=== PATIENT | male | born 1980 | race Two or more races ===

== ENCOUNTER → 2022-04-06 15:27 | Outpatient (BNVA) | payer SELFPAY | PROVIDERS: Visit Provider Internal Medicine Rheumatology | DX: L40.50 Arthropathic psoriasis, unspecified (principal); J45.909 Unspecified asthma, uncomplicated; B35.3 Tinea pedis; Z79.60 Long term (current) use of unspecified immunomodulators and immunosuppressants | CPT/HCPCS: 99212 ==

== ENCOUNTER 2022-12-07 15:12 | Outpatient (AMB) | payer OTHER, SELFPAY ==
--- NOTE | 2022-12-07 15:14 | A.OFFVIS_ITS ---
Intake Vital Signs 3 12/07/22 15:22 Height 6 ft 1 in Weight 166 lb 14.239 oz BMI 22.0 BP 98/60 Blood Pressure Location Lt brachial Position Sitting Pulse 74 Pulse Source Pulse Oximeter Temp 98 F Temp Source Skin Pulse Oximetry (%) 98 Oxygen Delivery Method Room Air Intake Visit Reasons: PSA Intake Note: Here for PsA follow up. Policy Service Coordinator Required: No Accompanied by: Self / Same As Patient Allergies No Known Allergies Allergy (Verified 12/07/22 15:25) HPI HPI Comments 2 History of Present Illness0 Details The patient returns for evaluation of his psoriasis and psoriatic arthritis. He remains on Humira 40 mg prescribed as every 2 week intervals. He does admit he has trouble sometimes getting back to his home to give himself the Humira injection on time. There is at present some outbreak of psoriasis around the scalp. He does use some triamcinolone 0.5% cream on the skin lesions occasionally. The joints however have been comfortable. He remains with deformity in the right hand and the feet. His asthma seems controlled currently with the occasional use of albuterol inhaler. He has heard about Skyrizi and wonders if it would be appropriate for him. The longer interval between doses would be more acceptable to his lifestyle. He continues to travel around town with his bicycle. 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 [facility] Medical History (Updated 04/06/22 @ 16:21 by Silas Contreras MD) Mild intermittent asthma in adult without complication Psoriatic arthritis Surgical History No history of previous surgery Family History Father No problems noted. Mother No problems noted. Social History (Updated 12/07/22 @ 15:26 by MILAN Benz) Household Members: Family Alcohol intake: former Patient Tobacco Use Status: Never used Tobacco Current occupational status: employed Review of Systems Const Details: Negative for appetite change, weight change, fever, chills, malaise and fatigue Eyes Details: Negative for vision change, dry eyes,headaches and dizziness Resp Details: Negative for SOB, cough and wheezing GI Details: Negative indigestion/heartburn, nausea, abdominal pain, bowel changes, diarrhea, constipation and bloody stool. Psych Details: Negative for anxiety, depression and stress Javier/Lymph Details: Negative for excessive bruising or bleeding. Physical Exam Vital Signs: Last Vital Signs Temp 98 F 12/07/22 15:22 Pulse 74 12/07/22 15:22 BP 98/60 12/07/22 15:22 Pulse Ox 98 12/07/22 15:22 Oxygen Delivery Method Room Air 12/07/22 15:22 BMI result Body Mass Index 22.0 APPEARANCE: Patient in no acute distress EYES no redness, pupils equal and reactive to light, eyelids normal EXTREMITIES: No edema, no calf tenderness, normal peripheral pulses. SKIN: Some nail changes in the toes. There is some redness and scaling in between the toes. Many of the toes have been fused in a parallel positions and I can not really see the skin in between. There is some redness particularly between the 1st and 2nd digit bilaterally. This looks more like tinea. No objective evidence of Raynaud's disease. There is some redness and scaling along the anterior scalp margin consistent with scalp psoriasis. JOINT EXAM:.?? Cervical Spine:.? Some limitation of full extension and lateral flexion. Rotation intact to about 50 degrees. No pain. No tenderness. Thoracic Spine:.? No scoliosis.? No tenderness on palpation. Lumbar Spine:.? Alignment normal.? There is some decreased flexion with a Rojelio's test about 3 cm. No pain with motion. No the tenderness. Chest Wall:.? No tenderness, swelling, increased warmth or erythema. Hands:.? Right: There is slight hyperextension at the MCP joints. They can be extended further but there is no flexion. There is similar fusion at the PIP joints at 90 degrees. None of these are tender today. The 2nd and 4th PIP also have fusion in full extension. Again no tenderness or swelling. He has trouble opposing the thumb against the other fingers but he can oppose the thumb to the palm of the hand. Photograph of the right hand: Left: Normal pain-free range of motion without tenderness, swelling, increased warmth or erythema. Able to make a full fist and has a good claim analyst strength. Wrists:.? Right: Minimal motion of any at the right wrist. There is some slight thickening and minimal tenderness. No redness or warmth. He has about 90 degrees of supination and pronation at the wrist. Left: Normal pain-free range of motion without tenderness, swelling, increased warmth or erythema. Elbows:. Normal pain-free range of motion without tenderness, swelling, increased warmth or erythema. Shoulders:.?? Full range of motion without pain. No tenderness, weakness, swelling, increased warmth or erythema. Hips:.? Full range of motion without pain. Hip bursa:.? No tenderness. Knees:.?? Normal pain-free range of motion without tenderness, swelling, increased warmth or erythema.? There is no effusion or crepitation Ankles:.? AP motion seems intact but there is limited inversion and eversion in both ankles. They are not tender or swollen. No Achilles tenderness. Feet:.? He has hallux valgus deformity bilaterally with splaying of the toes particularly between the 1st and 2nd digits bilaterally. This is a bit more prominent on the left. On the right that are calluses beneath the 3rd and 5th metatarsal but not underneath the 1st MTP. There is fusion at the 1st MTPs bilaterally. These are not tender today. There is the above-mentioned redness and scaling between the 1st and 2nd digits. All of the nails have some dystrophic changes but are not tender. Photograph of the feet: Tender points: No tenderness to digital palpation at the occiput, trapezius, second rib, lateral epicondyle, knees, greater trochanter and gluteal area bilaterally. Assessment & Plan Assessment & Plan (1) Long-term use of immunosuppressant medication: Code(s): Z79.60 - USP (current) use of unspecified immunomodulators and immunosuppressants (2) Asthma: Code(s): J45.909 - Unspecified asthma, uncomplicated (3) Psoriasis: Code(s): L40.9 - Psoriasis, unspecified (4) Psoriatic arthritis of multiple joints: Comment: Onset 2006. Initially on feet, ankles. Eventually elbow, hands wrists involved. Not much improvement with naproxen. No other treatment until 2013 - Methotrexate started August 2013, Humira added October 2013. Methotrexate stopped 03/11 by patient's choice, Humira continued. 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 Humira restarted in February 2022. Code(s): L40.50 - Arthropathic psoriasis, unspecified Plan Psoriatic arthritis with I think fairly good control of active synovitis. 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 The psoriasis however seems still a bit active in the scalp. Switching to a different biologic seems reasonable. He did not have any improvement in the past with methotrexate use. I gave him some written information on Skyrizi to review. He will think about it further and if he wants me to follow through with the prior authorization to put him on Skyrizi he will let us know. It is possible his insurance would prefer a different biologic after Humira. In the meantime he will stay on the Humira. Otherwise we will book follow-up with Rheumatology in 5 or 6 months. Medications: New 2 triamcinolone acetonide 0.5% 1 appl topical DAILY 30 grams 3RF L40.9 - Psoriasis, unspecified Discontinued 2 clotrimazole-betamethasone 1-0.05 % Discontinued Reason: Patient Completed Course 1 appl topical BID 15 grams 3RF Coding Level of Care Code Est Pt Level 3 (89648) Diagnoses Long-term use of immunosuppressant medication Z79.60 Asthma J45.909 Psoriasis L40.9 Psoriatic arthritis of multiple joints L40.50
[2022-12-07 15:22] VITALS: BP 98/60; PULSE 74; TEMP 36.6; O2SAT 98; BMI 22.0
== END 2022-12-07 16:21 | disposition home or self-care (01) ==
PROVIDERS: Visit Provider Internal Medicine Rheumatology
DX: Z79.60 Long term (current) use of unspecified immunomodulators and immunosuppressants (principal); J45.909 Unspecified asthma, uncomplicated; L40.9 Psoriasis, unspecified; L40.50 Arthropathic psoriasis, unspecified
CPT/HCPCS: 99213

== ENCOUNTER → 2022-12-07 15:12 | Outpatient (BNVA) | payer OTHER, SELFPAY | PROVIDERS: Visit Provider Internal Medicine Rheumatology | DX: L40.50 Arthropathic psoriasis, unspecified (principal); L40.9 Psoriasis, unspecified; J45.909 Unspecified asthma, uncomplicated; Z79.60 Long term (current) use of unspecified immunomodulators and immunosuppressants | CPT/HCPCS: 99212 ==

== ENCOUNTER 2023-06-16 14:10 | Outpatient (REF) | payer OTHER, SELFPAY ==
[2023-06-16 15:29] LABS: MANUAL DIFF FLAG NO
[2023-06-16 15:48] LABS: Basophils Percent Auto 0.3 % (0-2); Eosinophils Absolute Auto 0.2 X10*3/uL (0.0-0.4); Hematocrit 43.4 % (42.0-52.0); Imm Gran Abs Auto 0.02 X10*3/uL (0.00-0.03); Imm Gran Pct Auto 0.2 % (0.0-0.4); Lymphocytes Absolute Auto 1.8 X10*3/uL (1.2-4.9); Mean Corpuscular HGB Conc 34.6 g/dl (31.0-36.0); Mean Corpuscular Hemoglobin 31.7 pg (27.0-33.0); Mean Corpuscular Volume 91.8 fL (80.0-98.0); Mean Platelet Volume 10.4 fL (9.4-12.4); Monocytes Absolute Auto 0.7 X10*3/uL (0.1-1.2); Monocytes Percent Auto 7.3 % (2-11); Neutrophils Absolute Auto 6.2 x10*3/uL (2.0-8.3); Neutrophils Percent Auto 70.2 % (45-73); Platelet Count 208 X10*3/uL (160-400); Red Blood Count 4.73 X10*6/uL (4.60-5.80); Red Cell Distribution Width 12.1 % (11.0-16.0); White Blood Count 8.9 X10*3/uL (4.8-10.8)
[2023-06-16 16:16] LABS: Alanine Aminotransferase 28 U/L (0-40); Albumin Level 4.5 g/dL (3.5-5.0); Alkaline Phosphatase 63 U/L (39-117); Anion Gap 10 (12-20); Aspartate Amino Transferase 28 U/L (5-37); Bilirubin Total 0.9 mg/dL (0.0-1.0); Blood Urea Nitrogen 16 mg/dL (9-16); C Reactive Protein 0.14 mg/dL (< or = 0.50); Calcium 9.6 mg/dL (8.4-10.2); Carbon Dioxide 29 mmol/L (22-29); Chloride 104 mmol/L (96-108); Estimated Glomerular Filt Rate > 60; Glucose Random 91 mg/dL (60-115); Potassium 4.1 mmol/L (3.3-5.1); Sodium 139 mmol/L (135-145); Total Protein 7.7 g/dL (6.5-8.0)
[2023-06-16 16:23] LABS: Erythrocyte Sedimentation Rate 3 MM/HR (0-15)
[2023-06-18 16:19] LABS: IgA 181 mg/dL (47-310); IgG 1405 mg/dL (600-1640); IgM 106 mg/dL (50-300)
[2023-06-18 21:17] LABS: Prot Elec - Albumin 4.3 g/dL (3.8-4.8); Prot Elec - Alpha1 0.3 g/dL (0.2-0.3); Prot Elec - Alpha2 0.7 g/dL (0.5-0.9); Prot Elec - Beta 1 0.4 g/dL (0.4-0.6); Prot Elec - Beta 2 0.3 g/dL (0.2-0.5); Prot Elec - Gamma 1.3 g/dL (0.8-1.7); Prot Elec - Total Protein 7.3 g/dL (6.1-8.1)
== END 2023-06-16 14:11 | disposition home or self-care (01) ==
LOC: HO.LAB 14:10
PROVIDERS: Visit Provider Nurse Practitioner Family
DX: L40.50 Arthropathic psoriasis, unspecified (principal); Z79.60 Long term (current) use of unspecified immunomodulators and immunosuppressants
CPT/HCPCS: 36415; 80053; 82784; 84165; 85025; 85652; 86140; 86334; 99212

== ENCOUNTER 2023-06-16 14:10 | Outpatient (AMB) | payer OTHER, SELFPAY ==
[2023-06-16 14:32] VITALS: BP 100/62; PULSE 70; RESP 15; TEMP 36.3; O2SAT 96; BMI 21.8
--- NOTE | 2023-06-16 14:32 | A.OFFVIS_ITS ---
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 Ritika Wu 42-year-old male returns for follow-up of his psoriasis and psoriatic arthritis. He has been on Humira 40 mg every other week for the last 10 years. He finds that Humira is effective in managing his psoriasis and his psoriatic arthritis. He reports a persistent patch behind both ears. He says that he uses the topical cream to get rid of it. He denies any side effects from the medication and has not had any recent illnesses. He denies uveitis, and GI concerns. He voices that he would like to consider to switch to push it faye resume in the effort to prevent his left hand to become deformed as his right. He is right handed 12/07/2022 Dr. Contreras The patient returns for evaluation of his psoriasis and psoriatic arthritis. He remains on Humira 40 mg prescribed as every 2 week intervals. He does admit he has 1 more I am sorry me outbreak of psoriasis around the scalp. He does use some triamcinolone 0.5% cream on the skin lesions occasionally. The joints however have been comfortable. He remains with deformity in the right hand and the feet. His asthma seems controlled currently with the occasional use of albuterol inhaler. He has heard about Skyrizi and wonders if it would be appropriate for him. The longer interval between doses would be more acceptable to his lifestyle. He continues to travel around town with his bicycle. 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 [facility] Medical History Mild intermittent asthma in adult without complication Psoriatic arthritis Surgical History No history of previous surgery Family History Father No problems noted. Mother No problems noted. 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 Initially on feet, ankles. Eventually elbow, hands wrists involved. Not much improvement with naproxen. No other treatment until 2013 - Methotrexate started August 2013, Humira added October 2013. Methotrexate stopped 03/11 by patient's choice, Humira continued. Gap of treatment with Humira in 2021 when he ran out of the prescription and could not find a kinder teacher. Humira restarted in February 2022. 11/2022, Humira not working so well, we wanted to try Skyrizi but the insurance denied and wished us to try Stelara. Patient decided to stay with Humira Code(s): L40.50 - Arthropathic psoriasis, unspecified Plan Mr. Stephens with psoriasis and Psoriatic arthritis which appears to be adequately controlled with Humira 40 mg every other week. There is no active synovitis on PE and the patient denies tenderness to the joints. 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 The psoriasis however seems still a bit active in the scalp. He asked about switching to a skyrizi but I do not think it will be as effective on the joints. He may not have had sugnificant joint improvement in the past with methotrexate use but I think it may be enough to help with the psoriasis. The patient is refusing the addition MTX at this time. In the meantime he will stay on the Humira. Otherwise we will book follow-up with Rheumatology in 5 or 6 months. I spent 35 minutes reviewing history, evaluating patient and documenting Orders: Orders Erythrocyte Sedimentation Rate 06/16/23 L40.50 - Arthropathic psoriasis, unspecified, Z79.60 - terminal operations supervisor (current) use of unspecified immunomodulators and immunosuppressants Protein Electrophoresis, Serum 06/16/23 L40.50 - Arthropathic psoriasis, unspecified, Z79.60 - senior living (current) use of unspecified immunomodulators and immunosuppressants Immunofixation Pnl, Serum 06/16/23 L40.50 - Arthropathic psoriasis, unspecified, Z79.60 - senior living (current) use of unspecified immunomodulators and immunosuppressants Complete Blood Count Auto Diff 06/16/23 L40.50 - Arthropathic psoriasis, unspecified, Z79.60 - senior living (current) use of unspecified immunomodulators and immunosuppressants Comprehensive Met. Panel 06/16/23 L40.50 - Arthropathic psoriasis, unspecified, Z79.60 - senior living (current) use of unspecified immunomodulators and immunosuppressants C Reactive Protein 06/16/23 L40.50 - Arthropathic psoriasis, unspecified, Z79.60 - senior living (current) use of unspecified immunomodulators and immunosuppressants Immunoglobulins,IgG IgA IgM 06/16/23 L40.50 - Arthropathic psoriasis, unspecified, Z79.60 - senior living (current) use of unspecified immunomodulators and immunosuppressants Coding Level of Care Code Est Pt Level 3 (36679) Diagnoses Long-term use of immunosuppressant medication Z79.60 Psoriasis L40.9 Psoriatic arthritis of multiple joints L40.50
== END 2023-06-16 15:10 | disposition home or self-care (01) ==
PROVIDERS: Visit Provider Nurse Practitioner Family
DX: Z79.60 Long term (current) use of unspecified immunomodulators and immunosuppressants (principal); L40.9 Psoriasis, unspecified; L40.50 Arthropathic psoriasis, unspecified
CPT/HCPCS: 99213

== ENCOUNTER 2024-09-20 15:08 | Outpatient (AMB) | payer OTHER, SELFPAY ==
[2024-09-20 15:11] VITALS: BP 126/78; PULSE 70; O2SAT 96; BMI 21.0
--- NOTE | 2024-09-20 15:11 | A.OFFVIS_ITS ---
Vital Signs 09/20/24 15:11 Height 6 ft 1 in Weight 159 lb BMI 21.0 BP 126/78 Blood Pressure Location Lt brachial Position Sitting Pulse 70 Pulse Source Pulse Oximeter Pulse Oximetry (%) 96 Oxygen Delivery Method Room Air Intake Visit Reasons: PsA/PsO - Need labs, Cont Humira Intake Note: Patient last seen by Aleta Manriquez on 06/16/23. Presents today for PsA follow up and test results. Patient would like refill of Triamcinolone cream, and his Ventolin inhaler, as he has no PCP at the moment. He states after he gets his blood drawn, he feels the rheumatology symptoms worsen. Allergies No Known Allergies Allergy (Verified 09/20/24 15:16) Medication List - Last Reconciled 09/20/24 by Clare Oro MD adalimumab (Humira(CF) Pen) 40 mg (0.4 mL) subcut Q2W 28 days albuterol sulfate 90 mcg/actuation (ProAir HFA) 2 puffs inhalation Q6H PRN triamcinolone acetonide 0.5% 1 appl topical DAILY HPI Comments Details: Patient is a 43 y.o. male with developmental delay, PsO complicated by PsA here today for follow up Interval History: Patient last seen 06/16/23 with Aleta Manriquez. At that time he was following up for his PsO and PsA on Humira monotherapy. Doing well Today, No change to his symptoms Still has some psoriatic patches Still takes his Humira but not consistently every 2 weeks Rheumatologic History: Onset 2006. Initially on feet, ankles. Eventually elbow, hands wrists involved. Not much improvement with naproxen. No other treatment until 2013 - Methotrexate started August 2013, Humira added October 2013. Methotrexate stopped 03/11 by patient's choice, Humira continued. Gap of treatment with Humira in 2021 when he ran out of the prescription and could not find a funeral director. Humira restarted in February 2022. 11/2022, Humira not working so well, we wanted to try Skyrizi but the insurance denied and wished us to try Stelara. Patient decided to stay with Humira Current Rheumatology Medication(s): Humira 40mg SC every 2 weeks PFSH Medical History Mild intermittent asthma in adult without complication Psoriatic arthritis Surgical History No history of previous surgery Family History Father No problems noted. Mother No problems noted. Social History Household Members: Family Alcohol intake: former Patient Tobacco Use Status: Never used Tobacco Current occupational status: employed Review of Systems Const Details: Review of Systems Constitutional: Denies fever, chills, weight loss ENT: Denies vision changes, eye pain or eye redness, dental caries, dry mouth GI: Denies nausea, vomiting, diarrhea, abdominal pain, change in BM Pulm: Denies SOB, PETTIT, hemoptysis, wheezing Cards: Denies chest pain, palpitations Skin: Denies Raynaud's, nail changes, photosensitivity, MEDICAL SUPPORT SPECIALIST: Denies headaches, weakness, paresthesias, recurrent falls MSK: as per HPI All other systems reviewed and are unremarkable except noted above Physical Exam Vital Signs: Last Vital Signs Pulse 70 09/20/24 15:11 BP 126/78 09/20/24 15:11 Pulse Ox 96 09/20/24 15:11 Oxygen Delivery Method Room Air 09/20/24 15:11 BMI result Body Mass Index 21.0 Vital signs reviewed Physical Examination CONSTITUITIONAL Patient alert and cooperative. Well appearing and in no apparent painful distress HEENT Conjunctiva and sclera clear. No lymphadenopathy. CHEST/RESPIRATORY SYSTEM Normal respiratory effort and able to speak in complete sentences. Clear to auscultation bilaterally. No crackles, rales, rhonchi, wheezes heard. CARDIAC SYSTEM Regular rate and rhythm. S1 and S2 heard no murmurs. Radial pulses intact bilaterally MSK Hands * Right Hand: Not able to make a fist. Hand with claw deformity with non reducible flexion at the PIPs * Left Hand: Able to make a fist. No swelling or tenderness to palpation of these joints. No deformities noted. Wrists * Right Wrist: Fixed with minimal ROM * Left Wrist: Full ROM. 70 degrees of wrist flexion, 80 degrees of wrist extension. No swelling or TTP Elbows * Right Elbow: Full ROM. No swelling or TTP. No TTP of the medial and lateral epicondyles * Left Elbow: Full ROM. No swelling or TTP. No TTP of the medial and lateral epicondyles Shoulders * Right shoulder: Full ROM. No swelling noted. No TTP of the AC joint, subacromial bursa or posterior shoulder * Left shoulder: Full ROM. No swelling noted. No TTP of the AC joint, subacromial bursa or posterior shoulder Hips * Right hip: Good ROM. No pain elicited with hip flexion/internal rotation/external rotation * Left hip: Good ROM. No pain elicited with hip flexion/internal rotation/external rotation Hip bursa: No tenderness to palpation bilaterally Knees * Right knee: Full ROM. No swelling noted. No TTP of the knee joint lie or pes anserine bursa * Left knee: Full ROM. No swelling noted. No TTP of the knee joint lie or pes anserine bursa. Ankles * Right ankle: Good ankle dorsiflexion and plantar flexion. No swelling. No TTP of the ankle joint * Left ankle: Good ankle dorsiflexion and plantar flexion. No swelling. No TTP of the ankle joint Feet * Right foot: Negative squeeze test * Left foot: Negative squeeze test Tender points? * No tenderness to palpation of the bilateral trapezius, supraspinatus, anterior costochondral junctions, bilateral suboccipital muscle insertions SKIN Psoriatic patches behind the ears and posterior scalp Results Reviewed Results Reviewed: Laboratory Tests 06/16/23 15:27 WBC 8.9 RBC 4.73 Hgb 15.0 Hct 43.4 Plt Count 208 ESR 3 Sodium 139 Potassium 4.1 Chloride 104 Carbon Dioxide 29 BUN 16 Creatinine 0.79 AST 28 ALT 28 C-Reactive Protein 0.14 Assessment & Plan Assessment & Plan (1) Psoriatic arthritis of multiple joints: Comment: Onset 2006. Initially on feet, ankles. Eventually elbow, hands wrists involved. Not much improvement with naproxen. No other treatment until 2013 - Methotrexate started August 2013, Humira added October 2013. Methotrexate stopped 03/11 by patient's choice, Humira continued. Gap of treatment with Humira in 2021 when he ran out of the prescription and could not find a funeral director. Humira restarted in February 2022. 11/2022, Humira not working so well, we wanted to try Skyrizi but the insurance denied and wished us to try Stelara. Patient decided to stay with Humira Code(s): L40.50 - Arthropathic psoriasis, unspecified Category: Medical Plan: #PsO/PsA Patient is a 43 y.o. male with PsO/PsA here today for follow up. The last refill of his Humira was 1 year ago for 3 refills. I suspect that he is not consistently taking his Humira. Thankfully he does not have any evidence of synovitis but he does have a few PsO patches. Discussed with patient that I will not be refilling his Humira until he does blood work. His last blood work was over a year ago. Patient is aware of this and he will do his blood work Plan - Refill Humira once patient does his blood work - Labs already ordered: CBC, CMP, ESR, CRP, Hepatitis panel and T spot - RTC 6 months (2) Encounter for monitoring of adalimumab therapy: Code(s): Z51.81 - Encounter for therapeutic drug level monitoring; Z79.620 - [facility] (current) use of immunosuppressive biologic Plan: #Long-term Use of TNF Inhibitors: Humira Discussed with the patient the benefits and risks of TNF inhibitors for the management of the rheumatic condition Benefits include reduce pain, maintenance of remission and reduction of flares as well as progression of the disease Risks include injection sites/infusion reactions, serious infections (such as bacterial infections, opportunistic infections), malignancy, delaminating syndromes, autoimmune phenomena, CHF exacerbations, palmar plantar psoriasis and cytopenias Recommended rotating injection sites, and holding medication during and for up to 1 week after resolution of a febrile illness or open skin wound Plan I spent 30 minutes reviewing the record and labs, taking a history, examining the patient, discussing the treatment plan, ordering diagnostic work up and documenting in the medical record Coding Level of Care Code Est Pt Level 4 (57114) Complex EM visit Add On G2211 Diagnoses Psoriatic arthritis of multiple joints L40.50 Encounter for monitoring of adalimumab therapy Z51.81; Z79.620
--- OUTSIDE RECORDS SUMMARY | 2024-09-20 18:01 | XMS_ITS | Clinical Summary ---
Author Organization [employer] Address [address] [place] [address] [address] [place] [address] Care Team Providers Care Monorail Hooker Name Role Phone Unavailable Primary Care Provider Unavailabl e Allergies No known active allergies Medications Humira Pen 40 MG/0.4ML Pen-injector Kit pen-injector 3 Active Ventolin HFA 108 (90 Base) MCG/ACT inhaler INHALE 2 PUFFS EVERY 6 HOURS NEEDED FOR SHORTNESS OF BREATH OR WHEEZING 3 Active triamcinolone (Kenalog) 0.5 % cream Apply topically in the morning. to affected area 3 Active amoxicillin-cla vulanate (Augmentin) 875-125 MG tablet Take 1 tablet by mouth 2 times daily. 20 tablet 4 Active Active Problems Problem Noted Date Diagnosed Date Dental abscess 03/18/2023 Social History Tobacco Use Types Packs/Day Years Used Date Smoking Tobacco: Never Passive Smoke Exposure: Never Tobacco Cessation:Counseling Given: Not Answered Sex and Gender Information Value Date Recorded Sex Assigned at Male 03/18/2023 1:18 PM EST Legal Sex Male 1:16 PM EST Gender Identity Male 03/18/2023 1:18 PM EST Sexual Orientation Straight 03/18/2023 1: 18 PM EST Last Filed Vital Signs Vital Sign Reading Time Taken Comments Blood Pressure 142/85 06/30/2023 4:26 PM EDT Pulse - - Temperature - - Respiratory Rate - - Oxygen Saturation - - Inhaled Oxygen Concentration - - Weight - - Height - - Body Mass Index - - Plan of Treatment Health Maintenance Due Date Last Done Comments CT Colonography 1978 Colonoscopy 1978 Colorectal Cancer Screening 1978 Dental Prophylaxis 1978 Depression Screening 1978 FIT DNA/Cologuard 1978 FIT 1978 FOBT 1978 HIV Screening 1978 Lipid Panel 1978 SDOH Screening 1978 Sigmoidoscopy 1978 Disability Screening 1978 Alcohol/Substance Use Screening 1990 Family Planning (PISQ) 1993 Hepatitis C Screening 1996 DTaP/Tdap/Td Vaccines (1 - Tdap) 1997 Hepatitis B Vaccines (1 of 3 - 19+ 3-dose series) 1997 Dental Oral Exam 10/15/2023 04/15/2023 COVID-19 Vaccine (2 - season) 2023 11/26/2020 Dental X-Ray: Bitewings 04/16/2024 04/15/2023 Tobacco Screening 09/28/2024 09/29/2023 Influenza Vaccine (Season Ended) 2024 01/24/2019, 02/14/2018, 01/22/2014, Additional history exists Dental X-Ray: Full Mouth 04/16/2026 04/15/2023 Zoster Vaccines (1 of 2) 2028 RSV Patients and Patients Aged 60 years or older (1 - 1-dose 75+ series) 2053 HIB Vaccines Aged Out No longer eligi ble based on patient's age to complete this topic HPV Vaccines Aged Out No longer eligi ble based on patient's age to complete this topic Hepatitis A Vaccines Aged Out No long er eligible based on patient's age to complete this topic IPV Vaccines Aged Out No longer eligi ble based on patient's age to complete this topic Meningococcal B Vaccine Aged Out No l onger eligible based on patient's age to complete this topic Meningococcal Vaccine Aged Out No leopoldo saqib eligible based on patient's age to complete this topic Pneumococcal Vaccine: Pediatrics (0 to 5 Years) and At-Risk Patients (6 to 49) Years Aged Out No longer eligible based on patient's age to complete this topic RSV under 20 months Aged Out No longe r eligible based on patient's age to complete this topic Rotavirus Vaccines Aged Out No longer eligible based on patient's age to complete this topic Procedures Procedure Name Priority Date/Time Associated Diagnosis Comments INTRAORAL - COMPLETE SERIES OF RADIOGRAPHIC IMAGES Routine 04/15/2023 2:00 PM EST COMPREHENSIVE ORAL EVALUATION - NEW OR ESTABLISHED PATIENT Routine 04/15/2023 2:00 PM EST from Last 3 Months or Most Recently Relevant to Health Maintenance Insurance [facility] MEDICAID STAND ADULT
== END 2024-09-20 15:51 | disposition home or self-care (01) ==
PROVIDERS: Visit Provider Student in an Organized Health Care Education/Training Program
DX: L40.50 Arthropathic psoriasis, unspecified (principal); Z51.81 Encounter for therapeutic drug level monitoring; Z79.620 Long term (current) use of immunosuppressive biologic
CPT/HCPCS: 99214; G2211

== ENCOUNTER → 2024-09-20 15:08 | Outpatient (BNVA) | payer OTHER, SELFPAY | PROVIDERS: Visit Provider Student in an Organized Health Care Education/Training Program | DX: Z51.81 Encounter for therapeutic drug level monitoring (principal); L40.50 Arthropathic psoriasis, unspecified; Z79.620 Long term (current) use of immunosuppressive biologic | CPT/HCPCS: 99212 ==